=== PATIENT | female | born 1990 | race Caucasian/White ===

== ENCOUNTER → 2016-03-22 | Outpatient (CLI) | payer OTHER ==
[~2016-03-22] MED LIST: ALBUTEROL SULF8.5 GM IH; AZURETTE 28 DA1 EACH PO; FLOVENT DISKUS1 DISK IH; KEFLEX500 MG PO; MOTRIN800 MG PO; NORCO 5/3251 TABLET PO; OMEPRAZOLE40 M1 PO; PROVENTIL,2.5 MG/3 M IH; SIMVASTATIN20 MG PO; SINGULAIR10 MG PO; ZYRTEC10 M2 PO
== END | disposition home or self-care (01) ==
LOC: NUC 06:33
DX: R10.11 Right upper quadrant pain (principal); R19.4 Change in bowel habit; K21.9 Gastro-esophageal reflux disease without esophagitis
CPT/HCPCS: 78226; 78227; A9510

== ENCOUNTER 2016-05-03 08:26 | Day surgery (SDC) | payer OTHER ==
[~2016-05-03] VITALS: Ht 167.6 cm; Wt 124.7 kg
[~2016-05-03 08:26] MED LIST changes: +CYANOCOBALAM1000 MCG PO; +SIMVASTATIN40 MG PO
[2016-05-03 08:45] VITALS: BP 146/77
[2016-05-03] MEDS ORDERED: PERCOCET 5/31 TABLET PO (14:13)
[2016-05-03] MEDS ORDERED: COLACE100 MG PO (14:13)
[2016-05-03 15:25] VITALS: BP 137/83
[2016-05-03 16:19] VITALS: BP 128/56
== END 2016-05-03 16:42 | disposition home or self-care (01) ==
LOC: SDC 08:26
PROC: 0FT44ZZ Resection of Gallbladder, Percutaneous Endoscopic Approach (ICD-10-PCS; principal; 2016-05-03)
DX: K81.1 Chronic cholecystitis (principal); E78.5 Hyperlipidemia, unspecified; G47.30 Sleep apnea, unspecified; J45.909 Unspecified asthma, uncomplicated; Z88.1 Allergy status to other antibiotic agents
CPT/HCPCS: 88304; J0330; J1100; J1170; J2250; J2405; J3010